=== PATIENT | male | born 1955 | race Caucasian/White ===

== ENCOUNTER 2020-01-21 06:38 | Outpatient (REF) | payer OTHER, SELFPAY | END 2020-01-21 06:39 | disposition home or self-care (01) | LOC: HO.HMGCLDS 06:38 | PROVIDERS: PCP Internal Medicine; Visit Provider Internal Medicine | DX: Z20.828 Contact with and (suspected) exposure to other viral communicable diseases (principal) | CPT/HCPCS: C9803; U0003 ==

== ENCOUNTER 2020-03-07 09:45 | Day surgery (SDC) | payer OTHER, SELFPAY ==
[2020-03-03 15:17] VITALS: BMI 27.9
--- NOTE | 2020-03-05 09:37 | P.CONAN_ITS ---
Documented by User: Tomeka Quintana 03/05/20 09:37 HPI - Anesthesia Eval Consult details Narrative: 64yo M for Colonoscopy [facility] Past Medical History Medical History No significant past medical history Surgical History Surgical History Hx of colonoscopy No significant past surgical history Social History Social History Are you a primary date night caregiver to a significant other at home: No Do you presently have visiting nurse or other home services: No Smoking Status: Unknown if ever smoked Use of substances other than those prescribed or required for medical reasons: No Advance Directives: No Advance Directives Information Provided: No Advance Directives on File: No Recently lost weight without trying: No Meds Allergies Allergy/AdvReac Type Severity Reaction Status Date / Time mold AdvReac Runny Nose Verified 03/03/20 15:15 Home Medications Medication Instructions Recorded Confirmed Type No Known Home Meds 03/03/20 03/03/20 History Exam Exam Date and Time: March 05, 2020 0937 Height,Weight and Vital Signs: Height 6 ft Weight 93.44 kg Assessment and Plan Assessment Anesthesia Assessment: Chart Reviewed Documented by User: Gricel Blackburn 03/07/20 11:54 [facility] Past Medical History Medical History No significant past medical history Family History Family history of problems with anesthesia: No Surgical History Surgical History Hx of colonoscopy No significant past surgical history History of Problems with Anesthesia: No Social History Social History Are you a primary date night caregiver to a significant other at home: No Do you presently have visiting nurse or other home services: No Smoking Status: Unknown if ever smoked Use of substances other than those prescribed or required for medical reasons: No Advance Directives: No Advance Directives Information Provided: No Advance Directives on File: No Recently lost weight without trying: No Meds Allergies Allergy/AdvReac Type Severity Reaction Status Date / Time mold AdvReac Runny Nose Verified 03/03/20 15:15 Home Medications Medication Instructions Recorded Confirmed Type No Known Home Meds 03/03/20 03/03/20 History Exam Height,Weight and Vital Signs: Vital Signs Temp Pulse Resp BP Pulse Ox 03/07/20 11:08 97.0 F 63 18 162/93 H 99 Airway Mallampati Class: III TM Dist: >3cm Neck ROM: Full Heart: RRR Lungs: CTAB Assessment and Plan Assessment Anesthesia Assessment: Anesthesia Plan Discussed and Chart Reviewed Final Anesthetic Review NPO: Yes ASA Class: I Final Preanesthetic Review: No Changes in Pt Med Stat, Meds/Allgs Chart Reviewed, Consent Obtained/Reviewed and Anes Risks/Benef Reviewed Patient Risk: Low Procedure Risk: Low Assessment/Block/Sedation in SS: Assess/Block/Sedation-SS Anesthetic Plan Anesthetic Plan: MAC: Disposition: Standard PACU
[2020-03-07 11:08] VITALS: BP 162/93; PULSE 63; RESP 18; TEMP 36.1; O2SAT 99
[2020-03-07] MEDS: Lactated Ringers 1,000 ML 100 ML IVCONT (11:11)
--- NOTE | 2020-03-07 12:00 | MHC.SHP ---
Pre-Procedural Eval Section A The patient is an INPATIENT: No Changes since office visit: No Cold of Flu in the past 2 weeks, No New Medical Problems, No Changes in Medication and No Patient answered all questions The History & Physical has been completed within 30 days and I have reviewed it.: Yes Section B Chief Complaint: screening Allergies: Allergies Allergy/AdvReac Type Severity Reaction Status Date / Time mold AdvReac Runny Nose Verified 03/03/20 15:15 Plan I have reviewed the history and physical and performed a pertinent physical examination on my patient. No changes have occurred unless specified.
[2020-03-07 12:27] VITALS: BP 114/78; PULSE 67; RESP 14; TEMP 36.7; O2SAT 99
--- NOTE | 2020-03-07 12:29 | PM.OP ---
Brief Operative Note Date of Service: 03/07/20 Pre-op diagnosis: screening Post-op diagnosis: same Procedure: colonoscopy Surgeon: Valentin Peterson Anesthesia: MAC Estimated blood loss (mL): 0 Pathology: none sent Condition: stable Disposition: PACU
[2020-03-07 12:40] VITALS: BP 130/85; PULSE 57; RESP 18; O2SAT 96
--- NOTE | 2020-03-07 12:54 | OP_ITS ---
SURGEON: Valentin Peterson MD INDICATIONS: Colon cancer screening. PREOPERATIVE DIAGNOSIS: POSTOPERATIVE DIAGNOSIS: PROCEDURE PERFORMED: Colonoscopy to the terminal ileum. ESTIMATED BLOOD LOSS: COMPLICATIONS: ANESTHESIA: ASSISTANTS: SPECIMENS: MEDICATIONS: Monitored anesthesia care. DESCRIPTION OF PROCEDURE: History and physical performed. The risks and benefits of the procedure were explained to the patient. Informed consent was obtained. The patient was placed in left lateral decubitus position. A digital rectal exam was performed and was found to be normal. The Olympus pediatric video colonoscope was introduced into the rectum and advanced to the cecum without difficulty. The cecum was identified by transillumination, palpation, and identification of ileocecal valve. Examination was performed. The scope was removed. He tolerated the procedure well and was returned to recovery area in stable condition. FINDINGS: The terminal ileum was normal. Visualized colonic mucosa was normal. There was some liquid stool coating the mucosa, mainly in the right colon. This was washed and suctioned. No polyps were identified. Retroflexed examination showed small internal hemorrhoids. There was some mild sigmoid diverticulosis. IMPRESSION: Negative screening colonoscopy. RECOMMENDATION: 1. Follow up as needed. 2. Repeat colonoscopy is recommended in 10 years for average risk individuals. MD CANDACE Dominique/LLOYD / [id number]
--- NOTE | 2020-03-07 13:47 | HO.POSTANES ---
Post Anesthesia Evaluation Post Anesthesia Evaluation Vital Signs: Vital Signs Temp Pulse Resp BP Pulse Ox 03/07/20 12:40 57 18 130/85 96 03/07/20 12:27 98.1 F 67 14 114/78 99 03/07/20 11:08 97.0 F 63 18 162/93 H 99 Anesthesia: Monitored Mental Status: Awake Pain Control: Satisfactory Nausea/Vomiting: None Hydration: Adequate Anesthesia-Related Issues: No Anes. Related Issues
== END 2020-03-07 13:26 | disposition home or self-care (01) ==
PROVIDERS: PCP Internal Medicine; Visit Provider Internal Medicine Gastroenterology
PROC: 0DJD8ZZ Inspection of Lower Intestinal Tract, Via Natural or Artificial Opening Endoscopic (ICD-10-PCS; CPT 45378; principal; 2020-03-07 11:20)
DX: Z12.11 Encounter for screening for malignant neoplasm of colon (principal); K57.30 Diverticulosis of large intestine without perforation or abscess without bleeding; K64.8 Other hemorrhoids
CPT/HCPCS: 45378

== ENCOUNTER 2020-12-04 06:01 | Outpatient (REF) | payer OTHER, SELFPAY ==
[2020-12-04 11:16] LABS: MANUAL DIFF FLAG NO
[2020-12-04 11:54] LABS: Alanine Aminotransferase 31 U/L (0-40); Albumin Level 4.6 g/dL (3.5-5.0); Alkaline Phosphatase 67 U/L (39-117); Anion Gap 13 (12-20); Aspartate Amino Transferase 25 U/L (5-37); Bilirubin Total 1.2 mg/dL (0.0-1.0); Blood Urea Nitrogen 20 mg/dL (9-16); Calcium 9.2 mg/dL (8.4-10.2); Carbon Dioxide 30 mmol/L (22-29); Chloride 102 mmol/L (96-108); Cholesterol 179 mg/dL; Estimated Glomerular Filt Rate > 60; Glucose Fasting 94 mg/dL (60-99); HDL Cholesterol 38 mg/dL; LDL Cholesterol Calculated 115 mg/dl; Potassium 4.2 mmol/L (3.3-5.1); Sodium 141 mmol/L (135-145); Total Protein 7.2 g/dL (6.5-8.0); Triglycerides 130 mg/dL
[2020-12-04 11:58] LABS: Basophils Percent Auto 0.4 % (0-2); Eosinophils Absolute Auto 0.3 X10*3/uL (0.0-0.4); Eosinophils Percent Auto 3.6 % (0-4); Hematocrit 47.9 % (42-52); Hemoglobin 16.1 g/dl (14.0-18.0); Imm Gran Abs Auto 0.02 X10*3/uL (0.00-0.03); Imm Gran Pct Auto 0.3 % (0.0-0.4); Lymphocytes Absolute Auto 2.1 X10*3/uL (1.2-4.9); Lymphocytes Percent Auto 30.1 % (20-40); Mean Corpuscular HGB Conc 33.6 g/dl (31.0-36.0); Mean Corpuscular Hemoglobin 31.3 pg (27.0-33.0); Mean Platelet Volume 10.7 fL (9.4-12.4); Monocytes Absolute Auto 0.9 X10*3/uL (0.1-1.2); Monocytes Percent Auto 12.4 % (2-11); Neutrophils Absolute Auto 3.6 X10*3/uL (2.0-8.3); Neutrophils Percent Auto 53.2 % (45-73); Platelet Count 247 X10*3/uL (160-400); Red Blood Count 5.15 X10*6/uL (4.60-5.80); Red Cell Distribution Width 12.8 % (11.0-16.0); White Blood Count 6.9 X10*3/uL (4.8-10.8)
[2020-12-04 12:09] LABS: Prostate Specific Antigen 4.12 ng/mL (<0.05-4.0)
== END 2020-12-04 06:02 | disposition home or self-care (01) ==
LOC: HO.HMGCLDS 06:01
PROVIDERS: PCP Internal Medicine; Visit Provider Internal Medicine
DX: Z00.00 Encounter for general adult medical examination without abnormal findings (principal); Z12.5 Encounter for screening for malignant neoplasm of prostate
CPT/HCPCS: 36415; 80053; 80061; 84153; 85025

== ENCOUNTER 2021-02-26 10:37 | Outpatient (REF) | payer OTHER, SELFPAY ==
[2021-02-26 15:20] LABS: PSA,Total (Free>4and<10) 3.24 ng/mL (0.00-4.00)
== END 2021-02-26 10:38 | disposition home or self-care (01) ==
LOC: HO.HMGCLDS 10:37
PROVIDERS: PCP Internal Medicine; Visit Provider Internal Medicine
DX: Z12.5 Encounter for screening for malignant neoplasm of prostate (principal)
CPT/HCPCS: 36415; 84153

== ENCOUNTER 2022-01-11 06:06 | Outpatient (REF) | payer OTHER, SELFPAY ==
[2022-01-11 11:27] LABS: MANUAL DIFF FLAG NO
[2022-01-11 11:44] LABS: Basophils Absolute Auto 0.1 X10*3/uL (0.0-0.2); Basophils Percent Auto 0.6 % (0-2); Eosinophils Absolute Auto 0.4 X10*3/uL (0.0-0.4); Eosinophils Percent Auto 4.5 % (0-4); Hematocrit 47.1 % (42.0-52.0); Hemoglobin 15.3 g/dl (14.0-18.0); Imm Gran Abs Auto 0.04 X10*3/uL (0.00-0.03); Imm Gran Pct Auto 0.5 % (0.0-0.4); Lymphocytes Absolute Auto 2.3 X10*3/uL (1.2-4.9); Lymphocytes Percent Auto 28.3 % (20-40); Mean Corpuscular HGB Conc 32.5 g/dl (31.0-36.0); Mean Corpuscular Hemoglobin 30.1 pg (27.0-33.0); Mean Corpuscular Volume 92.5 fL (80.0-98.0); Mean Platelet Volume 10.7 fL (9.4-12.4); Monocytes Absolute Auto 0.9 X10*3/uL (0.1-1.2); Monocytes Percent Auto 11.7 % (2-11); Neutrophils Absolute Auto 4.4 x10*3/uL (2.0-8.3); Neutrophils Percent Auto 54.4 % (45-73); Platelet Count 258 X10*3/uL (160-400); Red Blood Count 5.09 X10*6/uL (4.60-5.80); Red Cell Distribution Width 12.9 % (11.0-16.0)
[2022-01-11 12:07] LABS: Alanine Aminotransferase 31 U/L (0-40); Albumin Level 4.4 g/dL (3.5-5.0); Alkaline Phosphatase 78 U/L (39-117); Anion Gap 15 (12-20); Aspartate Amino Transferase 24 U/L (5-37); Bilirubin Total 0.6 mg/dL (0.0-1.0); Blood Urea Nitrogen 17 mg/dL (9-16); Calcium 9.3 mg/dL (8.4-10.2); Carbon Dioxide 28 mmol/L (22-29); Chloride 102 mmol/L (96-108); Cholesterol 176 mg/dL; Estimated Glomerular Filt Rate > 60; Glucose Fasting 115 mg/dL (60-99); HDL Cholesterol 44 mg/dL; LDL Cholesterol Calculated 113 mg/dl; Potassium 4.2 mmol/L (3.3-5.1); Rheumatoid Factor < 15.0 IU/mL (<15.0); Sodium 141 mmol/L (135-145); Total Protein 7.1 g/dL (6.5-8.0); Triglycerides 98 mg/dL
[2022-01-11 12:17] LABS: Prostate Specific Antigen 3.48 ng/mL (<0.05-4.0); Thyroid Stimulating Hormone 5.21 uIU/mL (0.32-4.0)
== END 2022-01-11 06:07 | disposition home or self-care (01) ==
LOC: HO.HMGCLDS 06:06
PROVIDERS: PCP Internal Medicine; Visit Provider Internal Medicine
DX: Z00.00 Encounter for general adult medical examination without abnormal findings (principal); Z12.5 Encounter for screening for malignant neoplasm of prostate
CPT/HCPCS: 36415; 80053; 80061; 84153; 84443; 85025; 86431

== ENCOUNTER 2022-02-24 11:08 | Outpatient (REF) | payer OTHER, SELFPAY ==
[2022-02-24 14:08] LABS: Estimated Average Glucose 114 mg/dL; Hemoglobin A1c % 5.6 %
[2022-02-24 15:19] LABS: Anion Gap 13 (12-20); Blood Urea Nitrogen 16 mg/dL (9-16); Calcium 9.5 mg/dL (8.4-10.2); Carbon Dioxide 32 mmol/L (22-29); Chloride 100 mmol/L (96-108); Estimated Glomerular Filt Rate > 60; Free T4 (Free Thyroxine) 0.87 ng/dL (0.71-1.85); Glucose Random 139 mg/dL (60-115); Potassium 4.6 mmol/L (3.3-5.1); Prostate Specific Antigen Scr 3.59 ng/mL (<0.05-4.0); Sodium 140 mmol/L (135-145); Thyroid Stimulating Hormone 2.23 uIU/mL (0.32-4.0)
== END 2022-02-24 11:09 | disposition home or self-care (01) ==
LOC: HO.HMGCLDS 11:08
PROVIDERS: PCP Internal Medicine; Visit Provider Internal Medicine
DX: Z12.5 Encounter for screening for malignant neoplasm of prostate (principal); R94.6 Abnormal results of thyroid function studies; R73.09 Other abnormal glucose
CPT/HCPCS: 36415; 80048; 83036; 84153; 84439; 84443

== ENCOUNTER 2023-01-14 09:42 | Outpatient (REF) | payer OTHER, SELFPAY ==
[2023-01-14 13:44] LABS: MANUAL DIFF FLAG NO
[2023-01-14 13:51] LABS: Basophils Absolute Auto 0.1 X10*3/uL (0.0-0.2); Basophils Percent Auto 0.8 % (0-2); Eosinophils Absolute Auto 0.5 X10*3/uL (0.0-0.4); Eosinophils Percent Auto 7.8 % (0-4); Hematocrit 49.5 % (42.0-52.0); Hemoglobin 16.3 g/dl (14.0-18.0); Imm Gran Abs Auto 0.02 X10*3/uL (0.00-0.03); Imm Gran Pct Auto 0.3 % (0.0-0.4); Lymphocytes Percent Auto 31.9 % (20-40); Mean Corpuscular HGB Conc 32.9 g/dl (31.0-36.0); Mean Corpuscular Hemoglobin 30.2 pg (27.0-33.0); Mean Corpuscular Volume 91.8 fL (80.0-98.0); Mean Platelet Volume 10.1 fL (9.4-12.4); Monocytes Absolute Auto 0.5 X10*3/uL (0.1-1.2); Monocytes Percent Auto 8.1 % (2-11); Neutrophils Absolute Auto 3.2 x10*3/uL (2.0-8.3); Neutrophils Percent Auto 51.1 % (45-73); Platelet Count 237 X10*3/uL (160-400); Red Blood Count 5.39 X10*6/uL (4.60-5.80); Red Cell Distribution Width 12.7 % (11.0-16.0); White Blood Count 6.3 X10*3/uL (4.8-10.8)
[2023-01-14 14:12] LABS: Alanine Aminotransferase 27 U/L (0-40); Albumin Level 4.4 g/dL (3.5-5.0); Alkaline Phosphatase 69 U/L (39-117); Anion Gap 12 (12-20); Aspartate Amino Transferase 26 U/L (5-37); Bilirubin Total 0.8 mg/dL (0.0-1.0); Blood Urea Nitrogen 18 mg/dL (9-16); Calcium 9.6 mg/dL (8.4-10.2); Carbon Dioxide 31 mmol/L (22-29); Chloride 103 mmol/L (96-108); Cholesterol 198 mg/dL (<200); Estimated Glomerular Filt Rate > 60; Glucose Fasting 110 mg/dL (60-99); HDL Cholesterol 42 mg/dL (>40); LDL Cholesterol Calculated 135 mg/dL (<100); Potassium 5.1 mmol/L (3.3-5.1); Sodium 141 mmol/L (135-145); Total Protein 7.2 g/dL (6.5-8.0); Triglycerides 107 mg/dL (<150)
[2023-01-14 14:20] LABS: Prostate Specific Antigen 3.59 ng/mL (<0.05-4.0)
== END 2023-01-14 09:43 | disposition home or self-care (01) ==
LOC: HO.HMGCLDS 09:42
PROVIDERS: PCP Internal Medicine; Visit Provider Internal Medicine
DX: Z00.00 Encounter for general adult medical examination without abnormal findings (principal); Z12.5 Encounter for screening for malignant neoplasm of prostate
CPT/HCPCS: 36415; 80053; 80061; 84153; 85025

== ENCOUNTER 2024-01-31 08:58 | Outpatient (REF) | payer OTHER, SELFPAY ==
[2024-01-31 09:30] LABS: MANUAL DIFF FLAG NO
[2024-01-31 09:49] LABS: Basophils Absolute Auto 0.1 X10*3/uL (0.0-0.2); Basophils Percent Auto 0.9 % (0-2); Eosinophils Absolute Auto 0.4 X10*3/uL (0.0-0.4); Hematocrit 52.2 % (42.0-52.0); Hemoglobin 17.8 g/dl (14.0-18.0); Imm Gran Abs Auto 0.03 X10*3/uL (0.00-0.03); Imm Gran Pct Auto 0.4 % (0.0-0.4); Lymphocytes Absolute Auto 1.9 X10*3/uL (1.2-4.9); Lymphocytes Percent Auto 28.7 % (20-40); Mean Corpuscular HGB Conc 34.1 g/dl (31.0-36.0); Mean Corpuscular Hemoglobin 31.4 pg (27.0-33.0); Mean Corpuscular Volume 92.2 fL (80.0-98.0); Mean Platelet Volume 9.5 fL (9.4-12.4); Monocytes Absolute Auto 0.7 X10*3/uL (0.1-1.2); Neutrophils Absolute Auto 3.6 x10*3/uL (2.0-8.3); Platelet Count 258 X10*3/uL (160-400); Red Blood Count 5.66 X10*6/uL (4.60-5.80); White Blood Count 6.7 X10*3/uL (4.8-10.8)
[2024-01-31 10:31] LABS: Alanine Aminotransferase 41 U/L (0-40); Albumin Level 4.7 g/dL (3.5-5.0); Alkaline Phosphatase 79 U/L (39-117); Anion Gap 13 (12-20); Aspartate Amino Transferase 34 U/L (5-37); Bilirubin Direct 0.2 mg/dL (0.0-0.5); Bilirubin Total 0.8 mg/dL (0.0-1.0); Blood Urea Nitrogen 20 mg/dL (9-16); Calcium 9.4 mg/dL (8.4-10.2); Carbon Dioxide 32 mmol/L (22-29); Chloride 102 mmol/L (96-108); Cholesterol 209 mg/dL (<200); Estimated Glomerular Filt Rate > 60; Glucose Fasting 124 mg/dL (60-99); HDL Cholesterol 43 mg/dL (>40); LDL Cholesterol Calculated 140 mg/dL (<100); Potassium 4.9 mmol/L (3.3-5.1); Sodium 142 mmol/L (135-145); Total Protein 7.7 g/dL (6.5-8.0); Triglycerides 132 mg/dL (<150)
[2024-01-31 10:39] LABS: Thyroid Stimulating Hormone 2.12 uIU/mL (0.32-4.0)
[2024-01-31 10:47] LABS: Prostate Specific Antigen 5.79 ng/mL (<0.05-4.0); Vitamin B12 445 pg/mL (200-900)
== END 2024-01-31 08:59 | disposition home or self-care (01) ==
LOC: HO.LAB 08:58
PROVIDERS: PCP Internal Medicine; Visit Provider Internal Medicine
DX: Z82.69 Family history of other diseases of the musculoskeletal system and connective tissue (principal); Z12.5 Encounter for screening for malignant neoplasm of prostate
CPT/HCPCS: 36415; 80053; 80061; 80076; 82248; 82607; 84153; 84439; 84443; 85025

== ENCOUNTER 2024-03-29 13:01 | Outpatient (REF) | payer OTHER, SELFPAY ==
[2024-03-29 16:23] LABS: Anion Gap 11 (12-20); Blood Urea Nitrogen 20 mg/dL (9-16); Calcium 9.3 mg/dL (8.4-10.2); Carbon Dioxide 29 mmol/L (22-29); Chloride 103 mmol/L (96-108); Estimated Glomerular Filt Rate > 60; Glucose Fasting 93 mg/dL (60-99); Glucose Random 92 mg/dL (60-115); Potassium 4.1 mmol/L (3.3-5.1); Sodium 139 mmol/L (135-145)
[2024-03-29 16:28] LABS: Estimated Average Glucose 114 mg/dL; Hemoglobin A1C 167.3348 umol/L; Hemoglobin A1c % 5.6 % (<6.0); Total Hemoglobin (HGBA1C) 4395.1234 umol/L
--- OUTSIDE RECORDS SUMMARY | 2024-03-29 16:50 | XMS_ITS | Patient Health Record ---
Author Organization [facility] Address [address] [place] [address] Care Team Providers Care Tester Vibrator Equipment Name Role Phone Slava Woodard MD Primary Care Provider Valentin Hilsl Jr Unavailable ALLERGIES Allergen (clinical drug ingredient) Drug/Non Drug Allergy documented on EMR Reaction Allergy Type Onset Date Status hay fever,mold (uncoded) Unknown Allergy Active REASON FOR REFERRAL No Information MEDICATIONS Medication SIG (Take, Route, Frequency, Duration) Notes Start Date End Date Status MiraLax (colon prep) 8.3 ounce (238) grams mixed with Gatorade or Crystal Light orally begin at 5:00 p.m. the day before the procedure for 1 day 02/07/2020 Active IMMUNIZATIONS Vaccine Route Administration Date Status Comme nts Influenza Unknown 10/30/2019 Administered SOCIAL HISTORY Tobacco Use: Social History Observation Description Date Details (start date - stop date) Never Smoker NA - NA Sex Assigned At : Social History Observation Description Sex Assigned At Unknown Tobacco Use/Smoking Question Answer Notes Patient is a nonsmoker Alcohol Screen Question Answer Notes Did you have a drink containing alcohol in the p ast year? No Points 0 Interpretation Negative PROBLEMS Problem Type ICD Code Onset Dates Problem Status W/U Status Risk SNOMED Code Notes Problem Colon cancer screening (Z12.11) Active confirmed 932864482 Problem Encounter for other preprocedural examination (Z01.818) Active confirmed [id number] PLAN OF TREATMENT Future Test Test Name Order Date COLONOSCOPY 02/07/2020 Insurance Providers Payer Name Payer Address Payer Phone Subscriber Number Group Number Insured Name Patient Relationship to Insured Coverage Start Date Coverage End Date [facility] [address] [place] [phone] [id number] JULIO VERMA Self - patient is the insured MEDICAL (GENERAL) HISTORY Medical History History ICD Code Denies [place],DM,CVA,Lung disease,renal dise ase Surgical History Surgery Date(Month/Year)
[2024-03-29 17:15] LABS: PSA,Total (Free>4and<10) 6.48 ng/mL (0.00-4.00)
[2024-03-30 12:42] LABS: Percent Free Prostate Spec Ag 15 % (calc) (>25); Prostate Specific Ag Total 6.5 ng/mL (< OR = 4.0)
== END 2024-03-29 13:02 | disposition home or self-care (01) ==
LOC: HO.HMGCLDS 13:01
PROVIDERS: PCP Internal Medicine; Visit Provider Internal Medicine
DX: R73.03 Prediabetes (principal); Z12.5 Encounter for screening for malignant neoplasm of prostate
CPT/HCPCS: 36415; 80048; 83036; 84153; 84154

== ENCOUNTER 2024-05-24 09:11 | Outpatient (AMB) | payer OTHER, SELFPAY ==
--- NOTE | 2024-05-24 09:32 | MHC.OFFVIS ---
Intake Visit Reasons: elevated PSA Intake Note: New patient presents today for initial visit for elevated PSA PSA:6.5 Free:1.0 15% Urology Medication:none Blood Thinner:none Antibiotic Allergies:none Allergies mold Adverse Reaction (Verified 05/24/24 09:34) Runny Nose hay fever Allergy (Mild, Uncoded 05/09/24 15:37) Runny Nose HPI Comments Details: History of Present Illness The patient is a 68-year-old male presenting with elevated prostate-specific antigen (PSA) levels. He has a history of engaging in weightlifting activities and experienced soreness in January following these activities. The soreness reduced over time but increased again with the reinitiation of physical activities. The soreness is localized to the left side of the scrotum and extends slightly down the leg, noted as mild. The patient refrained from exercising for about a month, which has not fully resolved his symptoms. There are no significant urinary complaints or additional symptoms reported, other than the scrotal discomfort that prompted this consultation. Urinary Symptoms Review - No problems urinating - No incontinence reported - No urinary frequency or urgency issues discussed Results Discussion Notes Plan To investigate the elevated PSA levels, a repeat PSA test is essential with fasting and abstention from sexual activity prior to ensure accurate measurement. An ultrasound of the scrotum is warranted to evaluate the left scrotal pain and assess for epididymal cyst or fluid retention. Additionally, imaging of the urinary tract will be performed to evaluate prostate size and exclude significant pathologies. Based on findings, further interventions or management plans will be devised. The patient agrees to proceed with the diagnostic plan and follow-up. Patient Instructions - Schedule and undergo an ultrasound of the scrotum. - Avoid sexual activity 48 hours before repeat PSA blood test. - Fast as directed before blood testing. - Expect contact from radiology to arrange appointments. - Follow up as directed after imaging studies are complete. Patient was informed and verbally consented to the use of an ambient scribe for clinic note documentation during this visit. [facility] Medical History BPH with elevated PSA Essential (primary) hypertension Encounter for screening for malignant neoplasm of rectum Body mass index [BMI] 28.0-28.9, adult Other specified viral diseases Pain in left ankle and joints of left foot Low back pain, unspecified Allergic rhinitis due to pollen Overweight Pure hypercholesterolemia, unspecified Elevated prostate specific antigen [PSA] Prediabetes No significant past medical history Surgical History No significant past surgical history Hx of colonoscopy Social History Are you a primary healthcare marketer to a significant other at home: No Do you presently have visiting nurse or other home services: No Results AMB Urinalysis, Automated UA Leukoctes 15 Rukhsana/uL Last Edit by Keya Pacheco on 05/24/24 10:55 UA Nitrite Negative Last Edit by Keya Pacheco on 05/24/24 10:55 UA Urobilinogen 3.5 mg/dL Last Edit by Keya Pacheco on 05/24/24 10:55 UA Protein 1 mg/dL Last Edit by Keya Pacheco on 05/24/24 10:55 UA pH 6.0 Last Edit by Keya Pacheco on 05/24/24 10:55 UA Blood 10 Mark/uL Last Edit by Keya Pacheco on 05/24/24 10:55 UA Specific [place] 1.015 Last Edit by Keya Pacheco on 05/24/24 10:55 UA Ketone Negative Last Edit by Keya Pacheco on 05/24/24 10:55 UA Bilirubin 0 mg/dL Last Edit by Keya Pacheco on 05/24/24 10:55 UA Glucose 0 mg/dL Last Edit by Keya Pacheco on 05/24/24 10:55 Assessment & Plan Assessment & Plan (1) Enlarged prostate: Code(s): N40.0 - Benign prostatic hyperplasia without lower urinary tract symptoms Category: Medical (2) Left testicular pain: Code(s): N50.812 - Left testicular pain Category: Medical Orders: Orders US retroperitoneal comp Today N40.0 - Benign prostatic hyperplasia without lower urinary tract symptoms US scrotum Today N50.812 - Left testicular pain AMB Urinalysis Automated Today Z13.9 - Encounter for screening, unspecified Coding Diagnoses Enlarged prostate N40.0 Left testicular pain N50.812
--- OUTSIDE RECORDS SUMMARY | 2024-05-24 10:48 | XMS_ITS | Patient Health Record ---
Author Organization [facility] Address [address] [place] [address] Care Team Providers Care Bottle Feeder Name Role Phone Slava Woodard MD Primary Care Provider Valentin Hills Jr Unavailable [phone] Allergies Allergen (clinical drug ingredient) Drug/Non Drug Allergy documented on EMR Reaction Allergy Type Onset Date Status hay fever,mold (uncoded) Unknown Allergy Active Reason For Referral No Information Medications Medication SIG (Take, Route, Frequency, Duration) Notes Start Date End Date Status MiraLax (colon prep) 8.3 ounce (238) grams mixed with Gatorade or Crystal Light orally begin at 5:00 p.m. the day before the procedure for 1 day 02/07/2020 Active Immunizations Vaccine Route Administration Date Status Comme nts Influenza Unknown 10/30/2019 Administered Social History Tobacco Use: Social History Observation Description Date Details (start date - stop date) Never Smoker NA - NA Tobacco Use/Smoking Question Answer Notes Patient is a nonsmoker Alcohol Screen Question Answer Notes Did you have a drink containing alcohol in the p ast year? No Points 0 Interpretation Negative Problems Problem Type SNOMED Code ICD Code Onset Dates Problem Status W/U Status Risk Notes Problem [id number] Colon cancer screening (Z12.11) Active confirmed Problem 175777801 Encounter for other preprocedural examination (Z01.818) Active confirmed Plan Of Treatment Future Test Test Name Order Date COLONOSCOPY 02/07/2020 Insurance Providers Payer Name Payer Address Payer Phone Subscriber Number Group Number Insured Name Patient Relationship to Insured Coverage Start Date Coverage End Date [employer] [address] [facility] [phone] [id number] JULIO VERMA Self - patient is the insured Medical (General) History Medical History History ICD Code Denies [place],DM,CVA,Lung disease,renal dise ase Surgical History Surgery Date(Month/Year)
== END 2024-05-24 10:16 | disposition home or self-care (01) ==
LOC: HO.HUSH 09:11
PROVIDERS: PCP Internal Medicine; Visit Provider Urology
DX: Z13.9 Encounter for screening, unspecified (principal)

== ENCOUNTER → 2024-05-24 09:11 | Outpatient (BNVA) | payer OTHER, SELFPAY | PROVIDERS: PCP Internal Medicine; Visit Provider Urology | DX: N40.0 Benign prostatic hyperplasia without lower urinary tract symptoms (principal); N50.812 Left testicular pain; R97.20 Elevated prostate specific antigen [PSA] | CPT/HCPCS: 81003 ==

== ENCOUNTER 2024-06-13 13:42 | Outpatient (REF) | payer OTHER, SELFPAY ==
--- NOTE | ~2024-06-13 | US_ITS ---
CLINICAL HISTORY: N40.0 - Benign prostatic hyperplasia without lower urinary tract symptoms --- Addit ional Notes or Special Instructions: please measure prostate Retroperitoneal ultrasound Comparison: None Findings: The kidneys are normal in echotexture bilaterally. No hydronephrosis. The right kidney is normal in size, measuring 11.5cm in length. The left kidney is normal in size, measuring 11.7cm in length. The urinary bladder is unremarkable. Prevoid volume 147 mL. Postvoid volume 114 mL. Ureteral jets are visualized bilaterally. The prostate is enlarged, measuring 5.3 x 5.3 x 5.2cm, volume of 77.5 mL. Cyst in the right lobe of the liver measuring 2.5 x 2.7 x 3.5 cm. Impression: Enlarged prostate. Elevated postvoid residual volume indicating urinary retention. This document has been electronically signed by: Neena Harris MD on 06/14/2024 15:28:17
--- NOTE | ~2024-06-13 | US_ITS ---
CLINICAL HISTORY: N50.812 - Left testicular pain Scrotal ultrasound with vascular interrogation Comparison: None Findings: The testes are normal in echotexture without lesions. Normal arterial/venous color Doppler and flow pattern. Right testis size, normal: 5.0 x 2.2 x 2.9 cm, volume of 16.7mL. Left testis size, normal: 4.7 x 2.4 x 3.0 cm, volume of 17.7mL. The epididymides are normal in size and echotexture. Normal color Doppler. Left epididymal body cyst versus spermatocele measuring 0.5 x 0.6 x 0.4 cm left epididymal tells cyst versus spermatocele measuring 1.9 x 1.1 x 1.2 cm. No hydrocele. Right varicocele. No left varicocele. Impression: No acute findings. Isolated right varicocele. Further evaluation with abdomen and pelvis CT with contrast is recommended. This document has been electronically signed by: Neena Harris MD on 06/14/2024 15:28:37
--- OUTSIDE RECORDS SUMMARY | 2024-06-13 16:23 | XMS_ITS | Patient Health Record ---
Author Organization [facility] Address [address] [place] [address] Care Team Providers Care Preparation Supervisor Name Role Phone Slava Woodard MD Primary Care Provider Valentin Hills Jr Unavailable Allergies Allergen (clinical drug ingredient) Drug/Non Drug [...] Problem Status W/U Status Risk Notes Problem [id number] Colon cancer screening (Z12.11) Active confirmed Problem 397540922 Encounter for other preprocedural examination (Z01.818) Active confirmed Plan Of Treatment Future Test Test Name Order Date COLONOSCOPY 02/07/2020 Insurance Providers Payer Name Payer Address Payer Phone Subscriber Number Group Number Insured Name Patient Relationship to Insured Coverage Start Date Coverage End Date [facility] [address] [facility] [phone] [id number] JULIO VERMA Self - patient is the insured Medical (General) History Medical History History ICD Code Denies [place],DM,CVA,Lung disease,renal dise ase Surgical History Surgery Date(Month/Year)
== END 2024-06-13 13:43 | disposition home or self-care (01) ==
LOC: HO.HMGCX 13:42
PROVIDERS: PCP Internal Medicine; Visit Provider Urology
DX: N40.0 Benign prostatic hyperplasia without lower urinary tract symptoms (principal); N50.812 Left testicular pain
CPT/HCPCS: 76770; 76870

== ENCOUNTER → 2024-06-13 13:59 | Outpatient (BNV) | payer OTHER, SELFPAY | PROVIDERS: PCP Internal Medicine; Visit Provider Radiology Diagnostic Radiology | DX: N40.0 Benign prostatic hyperplasia without lower urinary tract symptoms (principal); I86.1 Scrotal varices | CPT/HCPCS: 76870; 93975 ==

== ENCOUNTER 2024-07-19 15:29 | Outpatient (AMB) | payer OTHER, SELFPAY ==
--- OUTSIDE RECORDS SUMMARY | 2024-07-19 15:32 | XMS_ITS | Patient Health Record ---
Author Organization [facility] Address [address] [place] [address] Care Team Providers Care Veneer Splicer Name Role Phone Slava Woodard MD Primary Care Provider Valentin Hills Jr Unavailable [phone] Allergies Allergen (clinical drug ingredient) Drug/Non Drug [...] Problem Status W/U Status Risk Notes Problem 304740101 Colon cancer screening (Z12.11) Active confirmed Problem 341109408 Encounter for other preprocedural examination (Z01.818) Active confirmed Plan Of Treatment Future Test Test Name Order Date COLONOSCOPY 02/07/2020 Insurance Providers Payer Name Payer Address Payer Phone Subscriber Number Group Number Insured Name Patient Relationship to Insured Coverage Start Date Coverage End Date [facility] [address] [facility] [phone] [id number] JULIO VERMA Self - patient is the insured Medical (General) History Medical History History ICD Code Denies [place],DM,CVA,Lung disease,renal dise ase Surgical History Surgery Date(Month/Year)
--- NOTE | 2024-07-19 15:42 | A.OFFVIS_ITS ---
Intake Visit Reasons: 8 weeks follow up/US Intake Note: Patient presents today for 8 weeks follow up/US * Renal & Scrotum US 06/14 Urology Medication:none Blood Thinner:none Antibiotic Allergies:none Allergies mold Adverse Reaction (Verified 07/19/24 15:44) Runny Nose hay fever Allergy (Mild, Uncoded 05/09/24 15:37) Runny Nose HPI Comments Details: 07/19/24-- History of Present Illness The patient is a 69-year-old male presenting with concerns regarding prostate enlargement and elevated PSA levels. During the conversation, it was noted that an ultrasound identified the prostate as significantly enlarged. His PSA level was recorded as elevated but within the higher limits of normal earlier this year. Additional imaging of the testicles revealed a varicocele. There has been no mention of urinary symptoms, pain, or other genito-urinary complaints currently. The patient had previously associated the PSA elevation with physical strain, which has since resolved alongside the associated soreness. A repeat PSA test is planned to confirm the PSA levels and determine if any further action, such as medication to reduce the prostate size or a biopsy, might be necessary in managing the condition. Urinary Symptoms Review - No urinary symptoms reported - No pain or pressure symptoms reported - No urinary incontinence or frequency issues reported Results - Tests and Diagnostics: - Ultrasound of the testicles: Normal, noted varicocele - Ultrasound of the prostate: Enlarged prostate - Labs: - Prostate-Specific Antigen (PSA): Elevated Discussion Notes I discussed with the patient that his prostate is significantly enlarged as indicated on ultrasound imaging. The PSA level is elevated, which might be associated with the prostate's large size. We discussed the plan to repeat the PSA test after a month, considering previous levels close to the normal high limit. The follow-up will include a telephone appointment to discuss results. Options such as medication to shrink the prostate and potential biopsy were mentioned. We discussed the need to avoid certain activities before the next PSA test, and the patient agreed to these instructions. We also talked over routine follow-up and no immediate concerns were noted. Plan I recommend repeating the PSA test in one month, ensuring the patient abstains from sexual activity and certain consumables prior to testing. A follow-up call is scheduled five weeks from now to discuss results. Based on the upcoming PSA results and prostate size, options such as medications to reduce prostate enlargement or a biopsy will be considered. Continuous monitoring of symptoms and PSA levels will guide future management decisions. Patient Instructions - Repeat PSA test in 1 month - Fasting required, no coffee before next PSA test - Abstain from sexual activity 48 hours prior to test - Drink only juice or water before the test - Follow-up video/phone call in 5 weeks to discuss test results - Inform promptly of any new symptoms or concerns Patient was informed and verbally consented to the use of an ambient scribe for clinic note documentation during this visit. 05/24/24--History of Present Illness: The patient is a 68-year-old male presenting with elevated prostate-specific antigen (PSA) levels. He has a history of engaging in weightlifting activities and experienced soreness in January following these activities. The soreness reduced over time but increased again with the reinitiation of physical activities. The soreness is localized to the left side of the scrotum and extends slightly down the leg, noted as mild. The patient refrained from exercising for about a month, which has not fully resolved his symptoms. There are no significant urinary complaints or additional symptoms reported. The Plan discussed is to check an ultrasound of the scrotum to evaluate the left scrotal pain and assess for epididymal cyst or fluid collection, mass. Additionally, imaging of the urinary tract will be performed to evaluate prostate size and exclude significant pathologies. Based on findings, further interventions or management plans will be devised. Also repeat PSAThe patient agrees to proceed with the diagnostic plan and follow-up. [facility] Medical History (Updated 07/19/24 @ 16:46 by Aida Craig MD) BPH with elevated PSA Essential (primary) hypertension Encounter for screening for malignant neoplasm of rectum Body mass index [BMI] 28.0-28.9, adult Other specified viral diseases Pain in left ankle and joints of left foot Low back pain, unspecified Allergic rhinitis due to pollen Overweight Pure hypercholesterolemia, unspecified Elevated prostate specific antigen [PSA] Prediabetes No significant past medical history Surgical History No significant past surgical history Hx of colonoscopy Social History Are you a primary home care manager rn to a significant other at home: No Do you presently have visiting nurse or other home services: No Results AMB Urinalysis, Automated UA Leukoctes 0 Rukhsana/uL Last Edit by Keya Pacheco on 07/19/24 17:02 UA Nitrite Negative Last Edit by Keya Pacheco on 07/19/24 17:02 UA Urobilinogen 17 mg/dL Last Edit by Keya Pacheco on 07/19/24 17:02 UA Protein 1 mg/dL Last Edit by Keya Pacheco on 07/19/24 17:02 UA pH 6.0 Last Edit by Keya Pacheco on 07/19/24 17:02 UA Blood 0 Mark/uL Last Edit by Keya Pacheco on 07/19/24 17:02 UA Specific [place] 1.020 Last Edit by Keya Pacheco on 07/19/24 17:02 UA Ketone Negative Last Edit by Keya Pacheco on 07/19/24 17:02 UA Bilirubin 0 mg/dL Last Edit by Keya Pacheco on 07/19/24 17:02 UA Glucose 0 mg/dL Last Edit by Keya Pacheco on 07/19/24 17:02 Assessment & Plan Assessment & Plan Orders: Orders AMB Urinalysis Automated Today N40.0 - Benign prostatic hyperplasia without lo wer urinary tract symptoms Coding
== END 2024-07-19 16:44 | disposition home or self-care (01) ==
LOC: HO.HUSH 15:30
PROVIDERS: PCP Internal Medicine; Visit Provider Urology
DX: N40.0 Benign prostatic hyperplasia without lower urinary tract symptoms (principal)

== ENCOUNTER → 2024-07-19 15:29 | Outpatient (BNVA) | payer OTHER, SELFPAY | PROVIDERS: PCP Internal Medicine; Visit Provider Urology | DX: N40.0 Benign prostatic hyperplasia without lower urinary tract symptoms (principal) | CPT/HCPCS: 81003 ==

== ENCOUNTER 2024-08-02 09:50 | Outpatient (AMB) | payer OTHER, SELFPAY ==
--- NOTE | 2024-08-02 09:51 | MHC.PC.OV ---
Vital Signs 08/02/24 09:54 Height 6 ft Weight 205 lb BMI 27.8 BP 124/76 Blood Pressure Location Lt brachial Position Sitting Pulse 56 Pulse Source Pulse Oximeter Temp 97.6 F Temp Source Axillary Pulse Oximetry (%) 99 Oxygen Delivery Method Room Air Intake Visit Reasons: Routine Houseman Required: No Accompanied by: Self / Same As Patient Allergies mold Adverse Reaction (Verified 08/02/24 09:51) Runny Nose hay fever Allergy (Mild, Uncoded 05/09/24 15:37) Runny Nose Tobacco use date assessed: 08/02/24 Fall risk assessment: No Falls in past year Last assessed Fall Risk: 08/02/24 Dental Screening Dental Screen Date: 08/02/24 Did you have a dental visit in the last 12 months?: Yes Did you have a dental problem in the last 6 months where you did not have access to dental care?: No HPI HPI Comments History of Present Illness Details The patient is a 69 year old male with a past medical history of elevated psa, hyperlipidemia, allergic rhinitis, prediabetes presenting for follow up. Last seen in Jan for physical exam HLD: not currently on medications. Following with urology for elevated PSA Colonoscopy 03/07/2020 ROS CONSTITUTIONAL: Denies weight loss, fever and chills. HEENT: Denies changes in vision and hearing. RESPIRATORY: Denies SOB and cough. CV: Denies palpitations and CP GI: Denies abdominal pain, nausea, vomiting and diarrhea. : Denies dysuria and urinary frequency. MSK: Denies new myalgia and joint pain. SKIN: Denies rash and pruritus. NEUROLOGICAL: Denies headache PSYCHIATRIC: Denies recent changes in mood. PHYSICAL EXAM: GENERAL: Alert and oriented x 3. NAD EYES: EOMI. Anicteric. HENT: Moist mucous membranes. No scleral icterus. No cervical lymphadenopathy. LUNGS: Clear to auscultation bilaterally. CARDIOVASCULAR: Regular rate and rhythm. No murmur. No JVD. ABDOMEN: Soft, non-tender +bs EXTREMITIES: No edema. Non-tender. SKIN: No rashes or lesions. Warm. NEUROLOGIC: No focal neurological deficits. CN II-XII grossly intact PSYCHIATRIC: Cooperative. Appropriate mood and affect [facility] Medical History (Updated 08/02/24 @ 10:32 by Estefania Lo MD) BPH with elevated PSA Essential (primary) hypertension Encounter for screening for malignant neoplasm of rectum Body mass index [BMI] 28.0-28.9, adult Other specified viral diseases Pain in left ankle and joints of left foot Low back pain, unspecified Allergic rhinitis due to pollen Overweight Pure hypercholesterolemia, unspecified Elevated prostate specific antigen [PSA] Prediabetes No significant past medical history Surgical History No significant past surgical history Hx of colonoscopy (~03/17/20) Family History (Updated 08/02/24 @ 09:57 by Mare Jackson MA) Mother No problems noted. Father No problems noted. Social History Housing: House Are you a primary career services assistant to a significant other at home: No Do you presently have visiting nurse or other home services: No Patient Tobacco Use Status: Never used Tobacco e-Cigarette/Vaping Use: Never Used service: No Current occupational status: employed Cognitive needs: No Hearing needs: No Vision needs: No Questionnaire PHQ-9 Over the last 2 weeks, how often have you been bothered by any of the following problems? 1. Little interest or pleasure in doing things: not at all 2. Feeling down, depressed, or hopeless: not at all 3. Trouble falling or staying asleep, or sleeping too much: not at all 4. Feeling tired or having little energy: not at all 5. Poor appetite or overeating: not at all 6. Feeling bad about yourself - or that you are a failure or have let yourself or your family down: not at all 7. Trouble concentrating on things, such as reading the newspaper or watching television: not at all 8. Moving or speaking so slowly that other people could have noticed. Or the opposite - being so fidgety or restless that you have been moving around a lot more than usual: not at all 9. Thoughts that you would be better off or of hurting yourself in some way: not at all Total score: 0 Depression Screening Interpretation: Negative Depression Screening Done: Yes 08274 - PHQ-9 Billing: Yes Source: Developed by Drs. Neri Mclain, Magui Veliz, Robert Lockwood and colleagues, with an educational delfina from [employer]. Thrive Questionnaire Date Thrive assessed: 08/02/24 I am a: Patient Within the past 12 months, did the food you bought not last and you didn't have the money to get more?: Never true Within the past 12 months, did you worry whether your food would run out before you got money to buy more?: Never true Do you have trouble paying for medicines?: No Do you have trouble getting transportation to medical appointments?: No Do you have trouble paying your heating and electricity bill?: No Do you have trouble taking care of your child, family member or friend?: No Do you have trouble with day-to-day activities such as bathing, preparing meals, shopping, managing finances, etc.?: No Are you currently unemployed and looking for a job?: No Are you interested in more education?: No THRIVE Score: 0 AUDIT C Alcohol Use Questionnaire (AUDIT-C) 1. How often do you have a drink containing alcohol?: Monthly or less 2. How many drinks containing alcohol do you have on a typical day when you are drinking?: 1 or 2 3. How often do you have six or more drinks on one occasion?: Less than monthly Total Score: 2 SHAVON-7 AMB Questionnaire SHAVON-7 Date SHAVON - 7 assessed: 08/02/24 Feeling nervous, anxious, or on edge: 0 = Not at all Not being able to stop or control worryin = Not at all Worrying too much about different things: 0 = Not at all Trouble relaxin = Not at all Being so restless that it is hard to sit still: 0 = Not at all Becoming easily annoyed or irritable: 0 = Not at all Feeling afraid as if something awful might happen: 0 = Not at all Total SHAVON-7 score (0-4 normal; 5-9 mild; 10-14 moderate; 15-21 severe): 0 Source: Developed by Drs. Neri Mclain, Magui Veliz, Robert Lockwood and colleagues, with an educational delfina from [employer]. Physical exam (Primary Care) Vital Signs: Last Vital Signs Temp 97.6 F 08/02/24 09:54 Pulse 56 08/02/24 09:54 BP 124/76 08/02/24 09:54 Pulse Ox 99 08/02/24 09:54 Oxygen Delivery Method Room Air 08/02/24 09:54 BMI result Body Mass Index 27.8 Tobacco/Smoking Status: Tobacco use Status Tobacco use date assessed 08/02/24 08/02/24 09:53 Patient Tobacco Use Status Never used Tobacco 08/02/24 09:53 e-Cigarette/Vaping Use Never Used 08/02/24 09:53 PHQ-9: PHQ-9 Score PHQ-9: Total score 0 08/02/24 10:28 Depression Screening Interpretation: Negative Thrive Assessment: Date of Thrive Assessment Date Thrive assessed 08/02/24 08/02/24 09:53 Coding Level of Care Code New Pt Level 4 (27456) Complex EM visit Add On G2211 Diagnoses Elevated prostate specific antigen [PSA] R97.20 Enlarged prostate N40.0 Prediabetes R73.03 Pure hypercholesterolemia, unspecified E78.00 Additional Codes PHQ-9 - 25334 - PHQ-9 Billing: Yes ([id number]) Assessment & Plan Assessment & Plan (1) Elevated prostate specific antigen [PSA]: Code(s): R97.20 - Elevated prostate specific antigen [PSA] Category: Medical (2) Enlarged prostate: Code(s): N40.0 - Benign prostatic hyperplasia without lower urinary tract symptoms Category: Medical (3) Prediabetes: Code(s): R73.03 - Prediabetes Category: Medical (4) Pure hypercholesterolemia, unspecified: Code(s): E78.00 - Pure hypercholesterolemia, unspecified Category: Medical Plan 69 year old to establish care past medical, surgical, social Elevated psa following with urology Labs ordered Orders: Orders Hemoglobin A1c 08/02/24 E78.00 - Pure hypercholesterolemia, unspecified, R73.03 - Prediabetes, Z13.0 - Encounter for screening for diseases of the blood and blood-forming organs and certain disorders involving the immune mechanism, Z13.228 - Encounter for screening for other metabolic disorders TSH reflex Free T4 08/02/24 E78.00 - Pure hypercholesterolemia, unspecified, R73.03 - Prediabetes, Z13.0 - Encounter for screening for diseases of the blood and blood-forming organs and certain disorders involving the immune mechanism, Z13.228 - Encounter for screening for other metabolic disorders Complete Blood Count Auto Diff 08/02/24 E78.00 - Pure hypercholesterolemia, unspecified, R73.03 - Prediabetes, Z13.0 - Encounter for screening for diseases of the blood and blood-forming organs and certain disorders involving the immune mechanism, Z13.228 - Encounter for screening for other metabolic disorders Comprehensive Met. Panel 08/02/24 E78.00 - Pure hypercholesterolemia, unspecified, R73.03 - Prediabetes, Z13.0 - Encounter for screening for diseases of the blood and blood-forming organs and certain disorders involving the immune mechanism, Z13.228 - Encounter for screening for other metabolic disorders
[2024-08-02 09:54] VITALS: BP 124/76; PULSE 56; TEMP 36.4; O2SAT 99; BMI 27.8
--- OUTSIDE RECORDS SUMMARY | 2024-08-02 11:09 | XMS_ITS | Patient Health Record ---
Author Organization [facility] Address [address] [place] [address] Care Team Providers Care Truck Operator Name Role Phone Slava Woodard MD Primary Care Provider Abdirashid Ray Unavailable [phone] Reason For Referral No Information Plan Of Treatment No Information Insurance Providers Payer Name Payer Address Payer Phone Subscriber Number Group Number Insured Name Patient Relationship to Insured Coverage Start Date Coverage End Date [facility] [address] [place] [address] [phone] [id number] Bello Hinds Self - patient is the insured
== END 2024-08-02 10:36 | disposition home or self-care (01) ==
LOC: HO.HMCHD 09:50
PROVIDERS: PCP Internal Medicine; Visit Provider Internal Medicine
DX: R97.20 Elevated prostate specific antigen [PSA] (principal); N40.0 Benign prostatic hyperplasia without lower urinary tract symptoms; R73.03 Prediabetes; E78.00 Pure hypercholesterolemia, unspecified

== ENCOUNTER → 2024-08-02 09:50 | Outpatient (BNVA) | payer OTHER, SELFPAY | PROVIDERS: PCP Internal Medicine; Visit Provider Internal Medicine | DX: N40.0 Benign prostatic hyperplasia without lower urinary tract symptoms (principal); R73.03 Prediabetes; E78.00 Pure hypercholesterolemia, unspecified; R97.20 Elevated prostate specific antigen [PSA]; J30.9 Allergic rhinitis, unspecified; Z13.30 Encounter for screening examination for mental health and behavioral disorders, unspecified; Z13.31 Encounter for screening for depression | CPT/HCPCS: 96127 ==

== ENCOUNTER 2024-08-17 07:10 | Outpatient (REF) | payer OTHER, SELFPAY ==
--- OUTSIDE RECORDS SUMMARY | 2024-08-17 07:13 | XMS_ITS | Patient Health Record ---
Author Organization [facility] Address [address] [place] [address] Care Team Providers Care Warehouse Shift Supervisor Name Role Phone Slava Woodard MD Primary Care Provider Abdirashid Ray Unavailable [phone] Reason For Referral No Information Plan Of Treatment No Information Insurance Providers Payer Name Payer Address Payer Phone Subscriber Number Group Number Insured Name Patient Relationship to Insured Coverage Start Date Coverage End Date [facility] [address] [place] [address] [phone] [id number] Bello Hinds Self - patient is the insured
[2024-08-17 10:14] LABS: MANUAL DIFF FLAG NO
[2024-08-17 10:15] LABS: Basophils Absolute Auto 0.1 X10*3/uL (0.0-0.2); Basophils Percent Auto 0.8 % (0-2); Eosinophils Absolute Auto 0.3 X10*3/uL (0.0-0.4); Eosinophils Percent Auto 5.1 % (0-4); Hematocrit 50.2 % (42.0-52.0); Hemoglobin 16.7 g/dl (14.0-18.0); Imm Gran Abs Auto 0.02 X10*3/uL (0.00-0.03); Imm Gran Pct Auto 0.3 % (0.0-0.4); Lymphocytes Percent Auto 31.2 % (20-40); Mean Corpuscular HGB Conc 33.3 g/dl (31.0-36.0); Mean Corpuscular Hemoglobin 30.6 pg (27.0-33.0); Mean Corpuscular Volume 92.1 fL (80.0-98.0); Mean Platelet Volume 10.6 fL (9.4-12.4); Monocytes Absolute Auto 0.7 X10*3/uL (0.1-1.2); Monocytes Percent Auto 10.2 % (2-11); Neutrophils Absolute Auto 3.4 x10*3/uL (2.0-8.3); Neutrophils Percent Auto 52.4 % (45-73); Platelet Count 241 X10*3/uL (160-400); Red Blood Count 5.45 X10*6/uL (4.60-5.80); Red Cell Distribution Width 13.2 % (11.0-16.0); White Blood Count 6.5 X10*3/uL (4.8-10.8)
[2024-08-17 10:53] LABS: Estimated Average Glucose 114 mg/dL; Hemoglobin A1c % 5.6 % (<6.0)
[2024-08-17 10:55] LABS: Alanine Aminotransferase 32 U/L (0-40); Albumin Level 4.9 g/dL (3.5-5.0); Alkaline Phosphatase 75 U/L (39-117); Anion Gap 13 (12-20); Aspartate Amino Transferase 34 U/L (5-37); Blood Urea Nitrogen 18 mg/dL (9-16); Calcium 9.3 mg/dL (8.4-10.2); Carbon Dioxide 28 mmol/L (22-29); Chloride 103 mmol/L (96-108); Estimated Glomerular Filt Rate > 60; Glucose Random 109 mg/dL (60-115); Potassium 3.9 mmol/L (3.3-5.1); Sodium 140 mmol/L (135-145); Total Protein 7.4 g/dL (6.5-8.0)
[2024-08-17 10:56] LABS: TSH reflex Free T4 1.11 uIU/mL (0.32-4.0)
== END 2024-08-17 07:11 | disposition home or self-care (01) ==
LOC: HO.HMGCLDS 07:10
PROVIDERS: PCP Internal Medicine; Referring Provider Urology; Visit Provider Internal Medicine
DX: R73.03 Prediabetes (principal); E78.00 Pure hypercholesterolemia, unspecified; Z13.228 Encounter for screening for other metabolic disorders; Z13.0 Encounter for screening for diseases of the blood and blood-forming organs and certain disorders involving the immune mechanism; Z12.5 Encounter for screening for malignant neoplasm of prostate
CPT/HCPCS: 36415; 80053; 83036; 84153; 84443; 85025

== ENCOUNTER 2024-08-24 08:57 | Outpatient (AMB) | payer OTHER, SELFPAY ==
--- NOTE | 2024-08-24 08:57 | MHC.OFFVIS ---
Intake Visit Reasons: 5W/ PSA Intake Note: PATIENT PRESENT FOR TELEHEALTH FOLLOW UP BPH PSA 08/17/24 :6..80 Urology Medication:none Blood Thinner:none Antibiotic Allergies:none Salvage Mend Worker Required: No Accompanied by: Self / Same As Patient Allergies mold Adverse Reaction (Verified 08/24/24 08:59) Runny Nose hay fever Allergy (Mild, Uncoded 05/09/24 15:37) Runny Nose HPI Comments Details: Bello is a pleasant male. He is a patient of Dr. Cohen. He seen for the following urologic conditions - lower urinary tract symptoms - elevated PSA large prostate Bladder ultrasound 06/22 75 g prostate Discussion regarding targeted biopsy At this stage PSA 6.8. PSA density within normal limits. Last free PSA was acceptable Trial finasteride with follow-up PSA in former 07/19/24-- History of Present Illness The patient is a 69-year-old male presenting with concerns regarding prostate enlargement and elevated PSA levels. During the conversation, it was noted that an ultrasound identified the prostate as significantly enlarged. His PSA level was recorded as elevated but within the higher limits of normal earlier this year. Additional imaging of the testicles revealed a varicocele. A repeat PSA test is planned to monitor the PSA levels and determine if any further action, such as medication to reduce the prostate size or a biopsy, might be necessary in managing the condition. Results - Tests and Diagnostics: - Ultrasound of the testicles: Withn normal limits, noted varicocele - Ultrasound of the prostate: Enlarged prostate 05/24/24--History of Present Illness: The patient is a 68-year-old male presenting with elevated prostate-specific antigen (PSA) levels. He has a history of engaging in weightlifting activities and experienced soreness in January following these activities. The soreness reduced over time but increased again with the reinitiation of physical activities. The soreness is localized to the left side of the scrotum and extends slightly down the leg, noted as mild. The patient refrained from exercising for about a month, which has not fully resolved his symptoms. There are no significant urinary complaints or additional symptoms reported. The Plan discussed is to check an ultrasound of the scrotum to evaluate the left scrotal pain and assess for epididymal cyst or fluid collection, mass. Additionally, imaging of the urinary tract will be performed to evaluate prostate size and exclude significant pathologies. Based on findings, further interventions or management plans will be devised. Also repeat PSAThe patient agrees to proceed with the diagnostic plan and follow-up. [facility] Medical History (Updated 08/02/24 @ 10:32 by Estefania Lo MD) BPH with elevated PSA Essential (primary) hypertension Encounter for screening for malignant neoplasm of rectum Body mass index [BMI] 28.0-28.9, adult Other specified viral diseases Pain in left ankle and joints of left foot Low back pain, unspecified Allergic rhinitis due to pollen Overweight Pure hypercholesterolemia, unspecified Elevated prostate specific antigen [PSA] Prediabetes No significant past medical history Surgical History No significant past surgical history Hx of colonoscopy (~03/17/20) Family History (Updated 08/02/24 @ 09:57 by Mare Jackson MA) Mother No problems noted. Father No problems noted. Social History Housing: House Are you a primary post anesthesia care unit nurse to a significant other at home: No Do you presently have visiting nurse or other home services: No Patient Tobacco Use Status: Never used Tobacco e-Cigarette/Vaping Use: Never Used service: No Current occupational status: employed Cognitive needs: No Hearing needs: No Vision needs: No Review of Systems Const Denies chills and Denies fever(s) Card Reports no additional complaints and Denies syncope Resp Denies cough GI Denies abdominal pain and Denies heartburn Reports as per HPI and Denies change in libido Neuro Denies syncope Psych Denies change in libido Endo Denies change in libido Physical Exam Const General: cooperative, healthy appearing, comfortable and no acute distress Orientation/consciousness: patient oriented x3 HEENT Face and sinus: Yes normal facial exam Mouth: moist mucous membranes Neck Neck: Yes normal visual inspection, Yes full ROM and Yes trachea midline Chest Chest palpation & inspection: normal inspection of the chest Resp Effort & Inspection: normal respiratory effort, able to speak in complete sentences and no respiratory distress GI Inspection: Yes normal to inspection Back/Spine/Pelvis Cervical Spine: normal cervical lordosis Thoracic/Lumbar Spine: thoracic and lumbar spine normal to inspection Skin General skin exam: no rashes or lesions noted Neuro General: patient oriented x3, gait normal, tone normal and moves all extremities Extrem General: Yes normal to inspection and Yes capillary refill normal Telehealth Telehealth Telehealth Platform: Whistle Location of provider rendering services: practice address Location of patient: address on file Patient Identification confirmed using: Name, : Yes Telehealth method: video Patient verbally consented to treatment: Yes Patient verbally consented to billing insurance company: Yes Patient informed of any privacy concerns related to visit: Yes Assessment & Plan Assessment & Plan (1) Enlarged prostate: Code(s): N40.0 - Benign prostatic hyperplasia without lower urinary tract symptoms Category: Medical (2) Elevated prostate specific antigen [PSA]: Code(s): R97.20 - Elevated prostate specific antigen [PSA] Category: Medical Plan Trial finasteride with four-month follow-up PSA Orders: Orders PSA,Total (Free>4and<10) 4 Months N40.0 - Benign prostatic hyperplasia without lower urinary tract symptoms Medications: New finasteride 5 mg PO DAILY 90 tabs 1RF 90 days N40.0 - Benign prostatic hyperplasia without lower urinary tract symptoms, N40.1 - Benign prostatic hyperplasia with lower urinary tract symptoms, N13.8 - Other obstructive and reflux uropathy, R33.9 - Retention of urine, unspecified Patient Instructions: This note is constructed using voice recognition software. While every effort has been made to ensure accuracy melter operator errors may have been included. Imaging studies, laboratory and physical exam results were discussed and reviewed in detail. No major barriers to patient understanding were identified. An opportunity to ask questions regarding the treatment plan was provided. All questions were answered. The patient expressed understanding and agreement with the above treatment plan. The patient is aware they should contact our office by phone for worsening of their current condition or the appearance of new urologic symptoms. Compliance is encouraged with any medications and followup testing that is ordered. It is a privilege to participate in the urologic care of your patient. If you have any questions or concerns regarding treatment for the above conditions, or other urologic issues, please do not hesitate to contact me. The office telephone contact is [phone]. Sincerely, Dr Diogenes Israel MD, [facility] - Urology Compassionate Specialist Care for the Genitourinary System Coding Level of Care Code Est Pt Level 4 (81577) Complex EM visit Add On G2211 Diagnoses Enlarged prostate N40.0 Elevated prostate specific antigen [PSA] R97.20
--- OUTSIDE RECORDS SUMMARY | 2024-08-24 09:13 | XMS_ITS | Patient Health Record ---
Author Organization [facility] Address [address] [address] Care Team Providers Care Civil Engineering Draftsperson Name Role Phone Slava Woodard MD Primary Care Provider Abdirashid Ray Unavailable [phone] Reason For Referral No Information Plan Of Treatment No Information Insurance Providers Payer Name Payer Address Payer Phone Subscriber Number Group Number Insured Name Patient Relationship to Insured Coverage Start Date Coverage End Date [facility] [address] [place] [address] [phone] [id number] Bello Hinds Self - patient is the insured
== END 2024-08-24 15:29 | disposition home or self-care (01) ==
LOC: HO.HUSH 08:57
PROVIDERS: PCP Internal Medicine; Visit Provider Urology
DX: N40.0 Benign prostatic hyperplasia without lower urinary tract symptoms (principal); R97.20 Elevated prostate specific antigen [PSA]
CPT/HCPCS: 99499

== ENCOUNTER 2024-12-12 06:05 | Outpatient (REF) | payer OTHER, SELFPAY ==
--- OUTSIDE RECORDS SUMMARY | 2024-12-12 06:08 | XMS_ITS | Patient Health Record ---
Author Organization [facility] Address [address] [place] [address] Care Team Providers Care Commercial Credit Lead Name Role Phone Slava Woodard MD Primary Care Provider Unavaila Abdirashid Pace Unavailable [phone] Reason For Referral No Information Plan Of Treatment No Information Insurance Providers Payer Name Payer Address Payer Phone Subscriber Number Group Number Insured Name Patient Relationship to Insured Coverage Start Date Coverage End Date [facility] [address] [facility] [address] [id number] Bello Hinds Self - patient is the insured
--- OUTSIDE RECORDS SUMMARY | 2024-12-12 06:09 | XMS_ITS | Patient Health Record ---
Author Organization [facility] Address [address] [place] [address] Care Team Providers Care Journeyman Machinist Name Role Phone Yamilet (RETIRED) Slava LACY Primary Care Provide Valentin Fenton Jr Unavailable [phone] Allergies Allergen (clinical drug ingredient) Drug/Non Drug Allergy documented on EMR Reaction Allergy Type Onset Date Status hay fever,mold (uncoded) Unknown Allergy Active Reason For Referral No Information Medications Medication SIG (Take, Route, Frequency, Duration) Notes Start Date End Date Status MiraLax (colon prep) 8.3 ounce ((238) grams mixed with Gatorade or Crystal Light orally begin at 5:00 p.m. the day before the procedure; Duration: 1 day 02/07/2020 Active Immunizations Vaccine Route [...] Problem Status W/U Status Risk Notes Problem Colon cancer screening (903485967) Colon cancer screening (Z12.11) Active confirmed Problem Pre-procedure evaluation check (528056058) Encounter for other preprocedural examination (Z01.818) Active confirmed Plan Of Treatment Future Test Test Name Order Date COLONOSCOPY 02/07/2020 Insurance Providers Payer Name Payer Address Payer Phone Subscriber Number Group Number Insured Name Patient Relationship to Insured Coverage Start Date Coverage End Date [facility] [address] [place] [address] [phone] [id number] JULIO VERMA Self - patient is the insured Medical (General) History Medical History History ICD Code Denies OK,DM,CVA,Lung disease,renal dise ase Surgical History Surgery Date(Month/Year)
[2024-12-12 10:52] LABS: PSA,Total (Free>4and<10) 5.03 ng/mL (0.00-4.00)
[2024-12-14 12:53] LABS: Free Prostate Spec Ag 0.8 ng/mL; Percent Free Prostate Spec Ag 17 % (calc) (>25)
== END 2024-12-12 06:06 | disposition home or self-care (01) ==
LOC: HO.HMGCLDS 06:05
PROVIDERS: PCP Internal Medicine; Visit Provider Urology
DX: N40.0 Benign prostatic hyperplasia without lower urinary tract symptoms (principal); Z12.5 Encounter for screening for malignant neoplasm of prostate
CPT/HCPCS: 36415; 84153; 84154

== ENCOUNTER 2024-12-18 08:44 | Outpatient (AMB) | payer OTHER, SELFPAY ==
--- NOTE | 2024-12-18 08:45 | A.OFFVIS_ITS ---
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 He is a patient of Dr. Cohen. He seen for the following urologic conditions - lower urinary tract symptoms - elevated PSA large prostate Telemedicine Evaluation 15 min Consultation [facility] [place] Video Doing well Had PSA drop Continue to follow Lower urinary tract symptoms Bladder ultrasound 06/22 75 g prostate Discussion regarding targeted biopsy PSA 06/22 6.8, 12/22 4.7 17% [facility] Medical History (Updated 08/02/24 @ 10:32 by Estefania Lo MD) BPH with elevated PSA Essential (primary) hypertension Encounter for screening for malignant neoplasm of rectum Body mass index [BMI] 28.0-28.9, adult Other specified viral diseases Pain in left ankle and joints of left foot Low back pain, unspecified Allergic rhinitis due to pollen Overweight Pure hypercholesterolemia, unspecified Elevated prostate specific antigen [PSA] Prediabetes No significant past medical history Surgical History No significant past surgical history Hx of colonoscopy (~03/17/20) Family History (Updated 08/02/24 @ 09:57 by Mare Jackson MA) Mother No problems noted. Father No problems noted. Social History Housing: House Are you a primary animal care technician to a significant other at home: No Do you presently have visiting nurse or other home services: No Patient Tobacco Use Status: Never used Tobacco e-Cigarette/Vaping Use: Never Used service: No Current occupational status: employed Cognitive needs: No Hearing needs: No Vision needs: No Review of Systems Const All systems reviewed & are unremarkable except as noted in HPI and below Reports no additional complaints Resp Reports no additional complaints GI Reports no additional complaints Reports as per HPI Musc Reports no additional complaints Physical Exam Telemedicine evaluation Appropriate responses Regular breathing rate and rhythm HEENT Head: Yes normal to inspection Ears: hearing grossly normal bilaterally Eyes General: appearance normal, both eyes and all related structures Neck Neck: Yes normal visual inspection Chest Chest palpation & inspection: normal inspection of the chest Resp Effort & Inspection: normal respiratory effort and able to speak in complete sentences Telehealth Telehealth Telehealth Platform: [facility] Location of provider rendering services: practice address Location of patient: address on file Patient Identification confirmed using: Name, : Yes Telehealth method: video Patient verbally consented to treatment: Yes Patient verbally consented to billing insurance company: Yes Patient informed of any privacy concerns related to visit: Yes Assessment & Plan Assessment & Plan (1) Elevated prostate specific antigen [PSA]: Code(s): R97.20 - Elevated prostate specific antigen [PSA] Category: Medical (2) Enlarged prostate: Code(s): N40.0 - Benign prostatic hyperplasia without lower urinary tract symptoms Category: Medical Plan Six-month follow-up Orders: Orders PSA,Total (Free>4and<10) 6 Months R97.20 - Elevated prostate specific antigen [PSA] Medications: Refilled finasteride 5 mg PO DAILY 90 tabs 1RF 90 days N40.1 - Benign prostatic hyperplasia with lower urinary tract symptoms Patient Instructions: This note is constructed using voice recognition software. While every effort has been made to ensure accuracy naturopathic physician errors may have been included. Imaging studies, laboratory and physical exam results were discussed and reviewed in detail. No major barriers to patient understanding were identified. An opportunity to ask questions regarding the treatment plan was provided. All questions were answered. The patient expressed understanding and agreement with the above treatment plan. The patient is aware they should contact our office by phone for worsening of their current condition or the appearance of new urologic symptoms. Compliance is encouraged with any medications and followup testing that is ordered. It is a privilege to participate in the urologic care of your patient. If you have any questions or concerns regarding treatment for the above conditions, or other urologic issues, please do not hesitate to contact me. The office telephone contact is [phone]. Sincerely, Dr Diogenes Israel MD, [facility] - Urology Compassionate Specialist Care for the Genitourinary System Coding Level of Care Code Tele Est Pt Level 3 (77560) Complex EM visit Add On G2211 Diagnoses Elevated prostate specific antigen [PSA] R97.20 Enlarged prostate N40.0
--- OUTSIDE RECORDS SUMMARY | 2024-12-18 09:05 | XMS_ITS | Patient Health Record ---
Author Organization [facility] Address [address] [place] [address] Care Team Providers Care Sugar Sampler Name Role Phone Slava Woodard MD Primary Care Provider Unavaila Abdirashid Pace Unavailable [phone] Reason For Referral No Information Plan Of Treatment No Information Insurance Providers Payer Name Payer Address Payer Phone Subscriber Number Group Number Insured Name Patient Relationship to Insured Coverage Start Date Coverage End Date [facility] [address] [facility] [id number] Bello Hinds Self - patient is the insured
--- OUTSIDE RECORDS SUMMARY | 2024-12-18 09:05 | XMS_ITS | Patient Health Record ---
Author Organization [facility] Address [address] [place] [address] Care Team Providers Care Brick Washer Name Role Phone Yamilet (RETIRED) Slava LACY Primary Care Provide Valentin Fenton Jr Unavailable [phone] 2 Allergies Allergen (clinical drug ingredient) Drug/Non Drug [...] Status Risk Notes Problem Colon cancer screening (981343694) Colon cancer screening (Z12.11) Active confirmed Problem Pre-procedure evaluation check ([id number]) Encounter for other preprocedural examination (Z01.818) Active confirmed Plan Of Treatment Future Test Test Name Order Date COLONOSCOPY 02/07/2020 Insurance Providers Payer Name Payer Address Payer Phone Subscriber Number Group Number Insured Name Patient Relationship to Insured Coverage Start Date Coverage End Date [facility] [address] [place] [phone] [id number] JULIO VERMA Self - patient is the insured Medical (General) History Medical History History ICD Code Denies [place],DM,CVA,Lung disease,renal dise ase Surgical History Surgery Date(Month/Year)
== END 2024-12-18 10:10 | disposition home or self-care (01) ==
LOC: HO.HUSH 08:44
PROVIDERS: PCP Internal Medicine; Visit Provider Urology
DX: R97.20 Elevated prostate specific antigen [PSA] (principal); N40.0 Benign prostatic hyperplasia without lower urinary tract symptoms; Z13.9 Encounter for screening, unspecified
CPT/HCPCS: 99213; G2211

== ENCOUNTER → 2024-12-18 08:44 | Outpatient (BNVA) | payer OTHER, SELFPAY | PROVIDERS: PCP Internal Medicine; Visit Provider Urology | DX: R97.20 Elevated prostate specific antigen [PSA] (principal); N40.0 Benign prostatic hyperplasia without lower urinary tract symptoms | CPT/HCPCS: 51798; 81003 ==

== ENCOUNTER 2025-02-01 08:50 | Outpatient (AMB) | payer OTHER, SELFPAY ==
--- NOTE | 2025-02-01 08:53 | MHC.PC.OV ---
Vital Signs 02/01/25 08:54 02/01/25 09:17 Height 6 ft Weight 209 lb 4 oz BMI 28.4 BP 158/92 H 168/91 H Blood Pressure Location Rt brachial Rt brachial Position Sitting Sitting Respiration 14 Pulse 61 Pulse Source Pulse Oximeter Temp 97.8 F Temp Source Oral Pulse Oximetry (%) 97 Oxygen Delivery Method Room Air Intake Visit Reasons: LAUREN from [address] Intake Note: Transfer of care. Roguer Required: No Allergies mold Adverse Reaction (Verified 02/01/25 08:56) Runny Nose hay fever Allergy (Mild, Uncoded 02/01/25 08:56) Runny Nose Tobacco use date assessed: 02/01/25 Fall risk assessment: No Falls in past year Last assessed Fall Risk: 02/01/25 Dental Screening Dental Screen Date: 08/02/24 HPI HPI Comments History of Present Illness Details The patient is a 69 year old male with a past medical history of elevated psa, hyperlipidemia, allergic rhinitis, prediabetes presenting for follow up HLD: not currently on medications. Last lipids were normal [place] [facility] [place] elevated PSA. Recent PSA improved Blood pressure elevated x 3 today. In July it was normal and he tells me historically it has been good. 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 HEENT: Denies changes in vision and hearing. RESPIRATORY: Denies SOB and cough. CV: Denies palpitations and CP GI: Denies abdominal pain, nausea, vomiting and diarrhea. : Denies dysuria and urinary frequency. MSK: Denies new myalgia and joint pain. SKIN: Denies rash and pruritus. NEUROLOGICAL: Denies headache PSYCHIATRIC: Denies recent changes in mood. PHYSICAL EXAM: GENERAL: Alert and oriented x 3. NAD EYES: EOMI. Anicteric. HENT: Moist mucous membranes. No scleral icterus. No cervical lymphadenopathy. LUNGS: Clear to auscultation bilaterally. CARDIOVASCULAR: Regular rate and rhythm. No murmur. No JVD. ABDOMEN: Soft, non-tender +bs EXTREMITIES: No edema. Non-tender. SKIN: No rashes or lesions. Warm. NEUROLOGIC: No focal neurological deficits. CN II-XII grossly intact PSYCHIATRIC: Cooperative. Appropriate mood and affect [facility] Medical History (Updated 02/01/25 @ 10:11 by Estefania Lo MD) BPH with elevated PSA Encounter for screening for malignant neoplasm of rectum Body mass index [BMI] 28.0-28.9, adult Other specified viral diseases Pain in left ankle and joints of left foot Low back pain, unspecified Allergic rhinitis due to pollen Overweight Pure hypercholesterolemia, unspecified Elevated prostate specific antigen [PSA] Prediabetes No significant past medical history Surgical History No significant past surgical history Hx of colonoscopy (~03/17/20) Family History Mother No problems noted. Father No problems noted. Social History Housing: House Are you a primary day care center director to a significant other at home: No Do you presently have visiting nurse or other home services: No Patient Tobacco Use Status: Never used Tobacco e-Cigarette/Vaping Use: Never Used service: No Current occupational status: employed Cognitive needs: No Hearing needs: No Vision needs: No Questionnaire PHQ-9 Over the last 2 weeks, how often have you been bothered by any of the following problems? 1. Little interest or pleasure in doing things: not at all 2. Feeling down, depressed, or hopeless: not at all 3. Trouble falling or staying asleep, or sleeping too much: not at all 4. Feeling tired or having little energy: not at all 5. Poor appetite or overeating: not at all 6. Feeling bad about yourself - or that you are a failure or have let yourself or your family down: not at all 7. Trouble concentrating on things, such as reading the newspaper or watching television: not at all 8. Moving or speaking so slowly that other people could have noticed. Or the opposite - being so fidgety or restless that you have been moving around a lot more than usual: not at all 9. Thoughts that you would be better off or of hurting yourself in some way: not at all Total score: 0 Depression Screening Interpretation: Negative Depression Screening Done: Yes 81814 - PHQ-9 Billing: Yes Source: Developed by Drs. Neri Mclain, Magui Veliz, Robert Lockwood and colleagues, with an educational delfina from [employer]. Thrive Questionnaire Date Thrive assessed: 08/02/24 I am a: Patient What is your living situation today?: I have a steady place to live Within the past 12 months, did the food you bought not last and you didn't have the money to get more?: Never true Within the past 12 months, did you worry whether your food would run out before you got money to buy more?: Never true Do you have trouble paying for medicines?: No Do you have trouble getting transportation to medical appointments?: No Do you have trouble paying your heating and electricity bill?: No Do you have trouble taking care of your child, family member or friend?: No Do you have trouble with day-to-day activities such as bathing, preparing meals, shopping, managing finances, etc.?: No Are you currently unemployed and looking for a job?: No Are you interested in more education?: No Please select the resources that you would like help with: None Currently or been in a relationship where the following occur: No concerns reported THRIVE Score: 0 AUDIT C Alcohol Use Questionnaire (AUDIT-C) 1. How often do you have a drink containing alcohol?: 2-4 times a month 2. How many drinks containing alcohol do you have on a typical day when you are drinking?: 1 or 2 3. How often do you have six or more drinks on one occasion?: Never Total Score: 2 SHAVON-7 AMB Questionnaire SHAVON-7 Date SHAVON - 7 assessed: 08/02/24 Feeling nervous, anxious, or on edge: 0 = Not at all Not being able to stop or control worryin = Not at all Worrying too much about different things: 0 = Not at all Trouble relaxin = Not at all Being so restless that it is hard to sit still: 0 = Not at all Becoming easily annoyed or irritable: 0 = Not at all Feeling afraid as if something awful might happen: 0 = Not at all Total SHAVON-7 score (0-4 normal; 5-9 mild; 10-14 moderate; 15-21 severe): 0 Source: Developed by Drs. Neri Mclain, Magui Veliz, Robert Lockwood and colleagues, with an educational delfina from [employer]. Physical exam (Primary Care) Vital Signs: Last Vital Signs Temp 97.8 F 02/01/25 08:54 Pulse 61 02/01/25 08:54 Resp 14 02/01/25 08:54 BP 168/91 H 02/01/25 09:17 Pulse Ox 97 02/01/25 08:54 Oxygen Delivery Method Room Air 02/01/25 08:54 BMI result Body Mass Index 28.4 Tobacco/Smoking Status: Tobacco use Status Tobacco use date assessed 02/01/25 02/01/25 08:59 Patient Tobacco Use Status Never used Tobacco 02/01/25 08:59 e-Cigarette/Vaping Use Never Used 02/01/25 08:59 PHQ-9: PHQ-9 Score PHQ-9: Total score 0 02/01/25 09:06 Depression Screening Interpretation: Negative Thrive Assessment: Date of Thrive Assessment Date Thrive assessed 08/02/24 02/01/25 08:59 Currently or been in a relationship where the following occur: No concerns reported Coding Level of Care Code Complex visit Add On G2211 Diagnoses Prediabetes R73.03 Elevated blood pressure reading without diagnosis of hypertension R03.0 Additional Codes PHQ-9 - 65417 - PHQ-9 Billing: Yes ([id number]) Assessment & Plan Assessment & Plan (1) Prediabetes: Code(s): R73.03 - Prediabetes Category: Medical (2) Elevated blood pressure reading without diagnosis of hypertension: Code(s): R03.0 - Elevated blood-pressure reading, without diagnosis of hypertension Category: Medical Plan Elevated blood pressure-historically normal. Check at home and call office. Decrease sodium, increase physical activity Prediabetes-decrease carb/sugar intake. Labs ordered Return in six months for CPE/MWV Orders: Orders Lipid Panel Today E78.00 - Pure hypercholesterolemia, unspecified, R73.03 - Prediabetes Hemoglobin A1c Today E78.00 - Pure hypercholesterolemia, unspecified, R73.03 - Prediabetes Complete Blood Count Auto Diff 6 Months E78.00 - Pure hypercholesterolemia, unspecified, I10 - Essential (primary) hypertension, R73.03 - Prediabetes Lipid Panel 6 Months E78.00 - Pure hypercholesterolemia, unspecified, I10 - Essential (primary) hypertension, R73.03 - Prediabetes Comprehensive Met. Panel Today E78.00 - Pure hypercholesterolemia, unspecified, R73.03 - Prediabetes Comprehensive Met. Panel 6 Months E78.00 - Pure hypercholesterolemia, unspecified, I10 - Essential (primary) hypertension, R73.03 - Prediabetes Hemoglobin A1c 6 Months E78.00 - Pure hypercholesterolemia, unspecified, I10 - Essential (primary) hypertension, R73.03 - Prediabetes TSH reflex Free T4 6 Months E78.00 - Pure hypercholesterolemia, unspecified, I10 - Essential (primary) hypertension, R73.03 - Prediabetes
[2025-02-01 08:54] VITALS: BP 158/92; PULSE 61; RESP 14; TEMP 36.6; O2SAT 97; BMI 28.4
[2025-02-01 09:17] VITALS: BP 168/91
== END 2025-02-01 11:09 | disposition home or self-care (01) ==
LOC: HO.HMCFM 08:50
PROVIDERS: PCP Internal Medicine; Visit Provider Internal Medicine
DX: R03.0 Elevated blood-pressure reading, without diagnosis of hypertension (principal); R73.03 Prediabetes

== ENCOUNTER → 2025-02-01 08:50 | Outpatient (BNVA) | payer OTHER, SELFPAY | PROVIDERS: PCP Internal Medicine; Visit Provider Internal Medicine | DX: Z13.31 Encounter for screening for depression (principal) | CPT/HCPCS: 96127 ==